=== PATIENT | male | born 1975 | race Caucasian/White ===

== ENCOUNTER 2018-09-04 10:42 | Emergency (ER) | payer OTHER ==
[2018-09-04] MEDS ORDERED: Sodium Chloride 0.9% 1,000 ML IV ONE (10:53)
[2018-09-04] MEDS ORDERED: HYDROmorphone 2 MG/ML SDV IM ONE (10:53)
[2018-09-04] MEDS ORDERED: Ondansetron 4 MG/2 ML SDV IVPUSH ONE (10:53)
[2018-09-04] MEDS ORDERED: Diphtheria,Pertussis(Acell),Tetanus Vaccine 0.5 ML Syringe IM ONE (10:56)
[2018-09-04] MEDS ORDERED: ceFAZolin 1 GM in Premix Bag 1 BAG IV ONE (10:56)
[2018-09-04] MEDS ORDERED: HYDROmorphone 1 MG/ML Syringe IVPUSH ONE (10:59)
--- NOTE | 2018-09-04 11:01 | EDM.PDOC ---
ED HPI GENERAL MEDICAL PROBLEM - General Chief Complaint: Lower Extremity Injury/Pain Stated Complaint: INJURED RT LEG Time Seen by Provider: 09/04/18 10:52 Source of Information: Reports: Patient History Limitations: Reports: No Limitations - History of Present Illness INITIAL COMMENTS - FREE TEXT/NARRATIVE: HISTORY AND PHYSICAL: History of present illness: Patient is a 43-year-old male who is brought to the emergency room by coworkers from work after atraumatic crush injury. He states a moving piece of equipment had pinned his left lower extremity, states the equipment is approximately 4000 pounds. He is unable to weight-bear on the left lower extremity and does have an open wound to the left lateral calf below the knee. States his tetanus is up- to-date. He denies any other extremity involvement, trunk or pelvis involvement. Denies hitting his head or any loss of consciousness. Denies any fever, chills, chest pain, shortness of breath or cough. Denies any abdominal pain, nausea, vomiting , diarrhea or constipation. Has been eating and drinking appropriately. Review of systems: As per history of present illness and below otherwise all systems reviewed and negative. Past medical history: As per history of present illness and as reviewed below otherwise noncontributory. Surgical history: As per history of present illness and as reviewed below otherwise noncontributory. Social history: See social history for further information Family history: As per history of present illness and as reviewed below otherwise noncontributory. Physical exam: General: Well-developed and well-nourished 43-year-old male. Alert and oriented. Nontoxic appearing and in no acute distress. HEENT: Atraumatic, normocephalic, pupils equal and reactive bilaterally, negative for conjunctival pallor or scleral icterus, mucous membranes moist, TMs normal bilaterally, throat clear, neck supple, nontender, trachea midline. No drooling or trismus noted. No meningeal signs. No hot potato voice noted. Lungs: Clear to auscultation, breath sounds equal bilaterally, chest nontender. Heart: S1S2, regular rate and rhythm without overt murmur Abdomen: Soft, nondistended, nontender. Negative for masses or hepatosplenomegaly. Negative for costovertebral tenderness. Pelvis: Stable nontender. Genitourinary: Deferred. Rectal: Deferred. Skin: (See Extremity for LLE details )Otherwise skin is intact, warm, dry. No lesions or rashes noted. Extremities: Soft tissue swelling to the left lower extremity with an open wound to the left lateral proximal calf. Strong pedal and pretibilal pulses. Pain with palpation of the tib-fib. Good extension of the foot, difficulty with flexion and lifting of the great toe. CMS intact. No calf pain. Neurovascular unremarkable. Neuro: Awake, alert, oriented. Cranial nerves II through XII unremarkable. Cerebellum unremarkable. Motor and sensory unremarkable throughout. Exam nonfocal. Notes: X-ray shows an open tibial plateau fracture. Patient was made aware of this. Vital signs are stable. 1125: Dr Oh was consulted on this case. 1145: Dr Oh saw the patient, he is concerned that there is a peroneal nerve injury as the patient is unable to lift his great toe or flex the foot backwards. Concerned there may also be some vascular involvement as the wound when left open does have moderate amount of bleeding. Pedal pulses and pretibial pulses are palpable. A pressure dressing was applied over the left lateral wound. 1155: Dr Rodriguez and Dr Lanier at [facility] in [place]. Dr Lanier accepted this patient. Patient is aware of transfer and agreeable. Vital signs remain stable. Diagnostics: X-ray left knee, tib-fib, ankle Therapeutics: IV fluid, Dilaudid, Zofran, Ancef Impression: Tibial plateau fracture, left Plan: Transferred to [facility] and [facility] via ground EMS, Dr. Lanier accepting physician Definitive disposition and diagnosis as appropriate pending reevaluation and review of above. Onset: Today Duration: Minutes: Left Lower Leg Pain Score (Numeric/FACES): 9 - Related Data Allergies Allergy/AdvReac Type Severity Reaction Status Date / Time No Known Allergies Allergy Verified 09/04/18 10:59 Home Meds: Home Meds . [No Known Home Meds] 09/04/18 [History] Review of Systems - Review of Systems Review Of Systems: ROS reveals no pertinent complaints other than HPI. ED EXAM, GENERAL - Physical Exam Exam: See Below (See dictation) Course - Vital Signs Last Recorded V/S: Last Vital Signs Temp 98.0 F 09/04/18 10:55 Pulse 116 H 09/04/18 10:55 Resp 20 09/04/18 10:55 BP 148/102 H 09/04/18 10:55 Pulse Ox 99 09/04/18 10:55 - Orders/Labs/Meds Orders: Active Orders 24 hr Category Date Time Status Notify Provider Consults [RC] ASDIRECTED Care 09/04/18 11:55 Ordered Vaccines to be Administered [RC] PER UNIT ROUTINE Care 09/04/18 10:56 Active Consult to Physician [CONS] Stat Cons 09/04/18 11:55 Ordered Labs: Laboratory Tests 09/04/18 09/04/18 09/04/18 Range/Units 11:07 11:07 11:07 WBC 9.05 (4.0-11.0) K/uL RBC 4.87 (4.50-5.90) M/uL Hgb 14.4 (13.0-17.0) g/dL Hct 41.2 (38.0-50.0) % MCV 84.6 (80.0-98.0) fL MCH 29.6 (27.0-32.0) pg MCHC 35.0 (31.0-37.0) g/dL RDW Std Deviation 41.1 (28.0-62.0) fl RDW Coeff of Aaliyah 14 (11.0-15.0) % Plt Count 238 (150-400) K/uL MPV 10.80 (7.40-12.00) fL Neut % (Auto) 66.3 (48.0-80.0) % Lymph % (Auto) 25.7 (16.0-40.0) % Potter % (Auto) 6.2 (0.0-15.0) % Eos % (Auto) 1.4 (0.0-7.0) % Baso % (Auto) 0.4 (0.0-1.5) % Neut # (Auto) 6.0 H (1.4-5.7) K/uL Lymph # (Auto) 2.3 (0.6-2.4) K/uL Potter # (Auto) 0.6 (0.0-0.8) K/uL Eos # (Auto) 0.1 (0.0-0.7) K/uL Baso # (Auto) 0.0 (0.0-0.1) K/uL Nucleated RBC % 0.0 /100WBC Nucleated RBCs # 0 K/uL Sodium 141 (136-148) mmol/L Potassium 4.0 (3.5-5.1) mmol/L Chloride 106 (98-107) mmol/L Carbon Dioxide 25.9 (21.0-32.0) mmol/L BUN 17 (7.0-18.0) mg/dL Creatinine 1.3 (0.8-1.3) mg/dL Est Cr Clr Drug Dosing 66.80 mL/min Estimated GFR (MDRD) > 60.0 ml/min Glucose 148 H (74-106) mg/dL Calcium 8.8 (8.5-10.1) mg/dL Total Bilirubin 0.5 (0.2-1.0) mg/dL AST 32 (15-37) IU/L ALT 57 (14-63) IU/L Alkaline Phosphatase 60 (46-116) U/L Total Protein 7.6 (6.4-8.2) g/dL Albumin 3.8 (3.4-5.0) g/dL Globulin 3.8 (2.6-4.0) g/dL Albumin/Globulin Ratio 1.0 (0.9-1.6) Blood Type O POSITIVE Antibody Screen NEGATIVE Meds: Medications Discontinued Medications Generic Name Dose Route Start Last Admin Trade Name Freq PRN Reason Stop Dose Admin Diphtheria/Tetanus/Acell Pertussis 0.5 ml 09/04/18 10:56 Adacel IM 09/04/18 10:57 .ONCE ONE Hydromorphone HCl 1 mg 09/04/18 10:53 09/04/18 11:28 Dilaudid IM 09/04/18 10:54 Not Given ONETIME ONE Hydromorphone HCl 1 mg 09/04/18 10:59 09/04/18 11:27 Dilaudid IVPUSH 09/04/18 11:00 1 mg ONETIME ONE Administration Sodium Chloride 1,000 mls @ 999 mls/hr 09/04/18 10:53 09/04/18 11:26 Normal Saline IV 09/04/18 11:53 300 mls/hr STAT ONE Infusion Cefazolin Sodium/Dextrose 1 gm 50 mls @ 100 mls/hr 09/04/18 10:56 09/04/18 11 :30 / Premix IV 09/04/18 11:25 100 mls/hr ONETIME ONE Administration Ondansetron HCl 4 mg 09/04/18 10:53 09/04/18 11:26 Zofran IVPUSH 09/04/18 10:54 4 mg ONETIME ONE Administration Departure - Departure Time of Disposition: 12:09 Disposition: DC/Tfer to [facility] 02 Clinical Impression: Tibial plateau fracture, left Qualifiers: Encounter type: initial encounter Fracture type: open - Discharge Information Referrals: PCP,None [Primary Care Provider] - Forms: ED Department Discharge - My Orders Last 24 Hours: My Active Orders 09/04/18 10:56 Vaccines to be Administered [RC] PER UNIT ROUTINE 09/04/18 11:55 Notify Provider Consults [RC] ASDIRECTED Consult to Physician [CONS] Stat - Assessment/Plan Last 24 Hours: My Active Orders 09/04/18 10:56 Vaccines to be Administered [RC] PER UNIT ROUTINE 09/04/18 11:55 Notify Provider Consults [RC] ASDIRECTED Consult to Physician [CONS] Stat
--- NOTE | 2018-09-04 11:38 | CR ---
EXAMINATION: Left tibia and fibula HISTORY: Crush injury COMPARISON: None TECHNIQUE: AP and lateral views FINDINGS: There is a vertically oriented intra-articular fracture through the lateral tibial plateau with a lipohemarthrosis. Remaining osseous structures and joint spaces are grossly preserved. Ankle mortise and talar dome appear intact. Small subchondral cysts noted within the medial talar dome. Adjacent soft tissue swelling and possible laceration noted adjacent to the left knee. IMPRESSION: 1. Vertically oriented intra-articular lateral tibial plateau fracture.
[2018-09-04 11:44] LABS: CHLORIDE,CL 106 mmol/L (98-107); SODIUM,NA 141 mmol/L (136-148)
--- NOTE | 2018-09-04 19:21 | HP ---
DATE OF : 1975 PRIMARY CARE PHYSICIAN: None PCP SUBJECTIVE: The patient is here for his left leg. He was injured at work. However, right now, he just had pain medications prior to me seeing him and is unable to provide much history. Apparently, a large heavy object slammed into his leg almost crushing it. He is unsure exactly what it was or how fast because of the speed of which had happened to him. He notes a lot of blood and had pain with walking, therefore presented to the ER. X-rays showed a proximal tibia fracture. He also has several open wounds in the posterolateral aspect of the knee. He denies definitive numbness or tingling. No other issues. Past medical, surgical history, social history in chart. PHYSICAL EXAMINATION: Disoriented from narcotics. Focused exam of the left leg demonstrates no pain on range of motion of the hip. The left knee demonstrates tenderness anterolaterally. There is minimal swelling. There are two puncture wounds, starting with one just posterior to the head of the fibula approximately 6 to 7 mm, another one about 2 cm more posterior to that. There was a large amount of blood coming from this. There was no other wound in the foot. He has questionable sensation in superficial and deep peroneal with normal in the saphenous sural and tibial. He has good plantar flexion of the foot and of the toes. He is unable to actively dorsiflex the ankle or the EHL. He has a palpable and dopplerable pulses. IMAGING: X-rays of left tibia and fibula demonstrate a minimally displaced lateral tibial plateau fracture, displaced approximately 2 mm on AP view, which extends down beneath the tibial tubercle on the lateral view. ASSESSMENT: Left proximal tibial plateau fracture, possible peroneal nerve and vascular injury. PLAN: I do not think he has necessarily an arterial lesion, but may have venous type lesion. A pressure dressing was placed due to the peroneal nerve injury and possible vascular injury. He is to be carried out by larger facility with microvascular and vascular capability. Therefore, he will be referred to a larger center, this was discussed with the ER physician. FRANKY DAVID /[id number]
== END 2018-09-04 12:45 ==
LOC: MW.ED 10:42
DX: S82.142B Displaced bicondylar fracture of left tibia, initial encounter for open fracture type I or II (principal); W23.0XXA Caught, crushed, jammed, or pinched between moving objects, initial encounter
CPT/HCPCS: 36415; 73590; 80053; 85025; 86850; 86900; 86901; 96361; 96365; 96375; 99285; J0690; J1170; J2405; J7040